=== PATIENT | male | born 1935 | race Caucasian/White ===

== ENCOUNTER 2018-01-08 18:25 | Emergency (ER) | payer MEDICARE, OTHER ==
[2018-01-08] MEDS ORDERED: DEXTROSE 5%-WATER 250 ML with VASOPRESSIN 100 UNIT IV PRN ×2 (18:50)
--- NOTE | 2018-01-08 18:51 | ER Document Report ---
ED General - General Chief Complaint: Cardiac Arrest Stated Complaint: POST ARREST Cannot obtain history due to: Intubated, Unstable vital signs Notes: Patient is an 82-year-old male with a past medical history of CHF and COPD who presents with EMS after being a witnessed cardiac arrest. Patient was found to be in ventricular tachycardia without a pulse. ACLS protocols were initiated and patient was subsequently transported to the emergency department. No other history can be obtained as the patient is intubated and unable to provide history. TRAVEL OUTSIDE OF THE [place] 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 EYES: Pupils are 1 mm, nonreactive. Glazed over ENT: nares patent, ET tube in place NECK: supple without lymphadenopathy LUNGS: Breath sounds clear to auscultation bilaterally and equal. No wheezes rales or rhonchi. HEART: Regular rate and rhythm without murmurs ABDOMEN: Distended abdomen. No rebound or guarding EXTREMITIES: No pitting or edema. NEUROLOGICAL: GCS 3 T PSYCH: Unable to assess SKIN: Pale, cool Course - Re-evaluation Re-evalutation: 01/08/18 18:47 Patient presents postarrest after being found to be in ventricular tachycardia without pulse. Patient was coded for a total of 30 minutes prior to arrival, the laceration prior to return of spontaneous circulation was PEA. Patient was reportedly in PEA for approximately 3-4 minutes. He did receive a total of 3 mg of epinephrine prior to arrival and was on an epinephrine infusion at 4 mcg/ min at time of arrival. On initial assessment a bedside echocardiogram shows a diffuse global dyskinesis of the heart but no evidence of pericardial effusion or tamponade. Breath sounds are clear bilaterally. Patient was a GCS of 3. No pupillary or corneal response. He did have some spontaneous ventilations. The epinephrine drip was immediately increased to 20 pg/min as patient's initial blood pressure was 48 systolic on palp. After approximately 10 minutes in the emergency department patient's blood pressure continued to deteriorate despite increasing the epinephrine infusion to 30 mcg/min. Patient did have loss of pulse. 2 rounds of ACLS protocol were followed including an additional 1 mg of epinephrine being administered. Patient did have return of spontaneous circulation with a paced rhythm. 3 g of calcium gluconate and an additional 50 mEQ of sodium bicarb was then administered. Will also initiate a vasopressin infusion. Patient is critically ill, very high risk for multiple re-arrests, and I anticipate that he may despite our efforts. 01/08/18 18:58 Patient is biting on his tube although continues to be with any spontaneous movements. Not following commands. Will paralyzed with vecuronium, begin ketamine infusion for sedation, nasal drip is being initiated as patient continues to be profoundly hypotensive despite epinephrine infusion being at 30 mcg/min. 01/08/18 20:37 Patient has been maxed out on epinephrine and vasopressin maintaining maps between 60 and 70. A central line has been placed in the right internal jugular vein without difficulty. Patient has been noted having intermittent runs of ventricular tachycardia. Amiodarone infusion has been started after an initial bolus of 150 mg. Patient continues to be critically ill, unstable, I am reassessing frequently. Laboratories show a markedly elevated white blood cell count of 144.9, extremely worrisome for a malignant process as part of the etiology of today's presentation. Troponin is mildly elevated particularly given that he did have an arrest. 01/08/18 21:03 Chest x-ray to confirm internal jugular vein position does not appear completely normal as the central line comes down what appears to be internal jugular and then crosses midline. I consulted with the radiologist who states that this could either be a subclavian branch or an anomalous vein or structure. However she cannot definitively rule out an arterial placement. Clinically, this does not appear to be consistent with arterial placement at all as during placement the needle was placed under ultrasound guidance, was visualized be going into the internal jugular vein, and bleeding was allowed after placement of the needle with a very slow, dark blood output. There is not back up into the ports. Infusions go through easily. There is also no bleeding around the site of the catheter placement to suggest dilation of an arterial vessel. Radiology has recommended a CT to verify but unfortunately the patient is so unstable that I do not believe it would be safe to transport him CT at this time. Will obtain of gas off of the line to further assess. 01/08/18 21:24 Patient's BP continues to be very poor. I have spent 20 minutes with the family updating them on the deterioration of the patient and my high level of concern that his white blood cell count with 10% band neutrophils he is suggestive of a malignant process either an acute leukemia or lymphoma. Alternative consideration would be a multiple myeloma. This is a very concerning manner presentation as patient did present in cardiac arrest and appears to have multisystem organ failure based on his labs showing both renal and hepatic failure. In regards to the central line placement: At this point I am quite certain that it is not in an artery as there is not even a slight hematoma to the area, there is no back up into the lines, guidelines continue to flush easily, and at this point it is entirely unsafe to confirm placement by a CT. Will continue to monitor closely and await the family's decision regarding ongoing care management although the patient would require transfer for consideration of induction chemotherapy. 01/08/18 22:29 Family is becoming more comfortable at this point with withdrawal of care and proceeding to comfort measures. Patient's labs continue to show multitudes of concerning findings including a lactate of almost 10, pH of 7, continued need for multiple vasopressors, no longer breathing over the ventilator. They would like to speak with the rig hand before proceeding with comfort measures 01/09/18 00:12 This is a delayed note. After multiple conversations with a multitude of family members they did come to the conclusion that withdrawal of care with comfort measures was most appropriate. After discussing with the and the son at the bedside they did confirm their desire to proceed with extubation, removal of vasopressor agents and IV analgesia. I went to the bedside with Sommer the nurse caring for this patient. We administered 2 mg of hydromorphone IV. The patient was then extubated. No spontaneous respirations were noted. All vasopressor agents were withheld stopped. monitor technician was shut off. Within 10 minutes of these measures being taken the patient did at 2336. - Vital Signs Vital signs: Temp Pulse Resp BP Pulse Ox 95.1 F L 13 87/33 L 100 01/08/18 23:20 01/08/18 23:20 01/08/18 23:21 01/08/18 22:26 - Laboratory Result Diagrams: 01/08/18 18:41 01/08/18 18:41 Laboratory results interpreted by me: 01/08/18 01/08/18 01/08/18 18:41 18:41 18:41 WBC 144.9 H* RBC 4.33 L Hgb 12.7 L MCV 98 H MCHC 30.0 L RDW 17.2 H Band Neutrophils % 10 H Monocytes % (Manual) 2 L Metamyelocytes % 8 H Myelocytes % 1 H Abs Neuts (Manual) 117.4 H Abs Lymphs (Manual) 24.6 H Abs Monocytes (Manual) 2.9 H VBG pH VBG HCO3 Sodium 136.2 L Carbon Dioxide 7 L* Anion Gap 22 H BUN 42 H Creatinine 2.88 H Est GFR ( Amer) 26 L Est GFR (Non-Af Amer) 21 L Glucose 154 H Lactic Acid Uric Acid Calcium 7.2 L Magnesium 2.4 H Direct Bilirubin 0.6 H AST 185 H ALT 102 H Total Protein 5.2 L Albumin 2.3 L 01/08/18 01/08/18 01/08/18 18:41 21:15 21:15 WBC RBC Hgb MCV MCHC RDW Band Neutrophils % Monocytes % (Manual) Metamyelocytes % Myelocytes % Abs Neuts (Manual) Abs Lymphs (Manual) Abs Monocytes (Manual) VBG pH 7.00 L* VBG HCO3 10.4 L Sodium Carbon Dioxide Anion Gap BUN Creatinine Est GFR ( Amer) Est GFR (Non-Af Amer) Glucose Lactic Acid 9.9 H Uric Acid 10.5 H Calcium Magnesium Direct Bilirubin AST ALT Total Protein Albumin - Diagnostic Test Radiology reviewed: Image reviewed, Reports reviewed Radiology results interpreted by me: 01/08/18 20:40 Chest x-ray: ET tube in appropriate position, no acute infiltrate pneumothorax - EKG Interpretation by Me Additional EKG results interpreted by me: 01/09/18 03:01 Atrially sensed ventricular paced rhythm, rate 78. Procedures - Central Line Right Internal jugular Consent obtained: No - Emergent Central line pre-insertion: Sterile PPE donned, Chloraprep applied, Sterile drapes applied Central line lumen type: Triple Ultrasound guided: Yes CM at insertion site: 20 Line secured with sutures: Yes Central line post-insertion: Blood return from lumens, Biopatch applied, Sutured , Sterile dressing applied Number of attempts: 1 Complications: No Notes: 01/09/18 02:52 Chest x-ray positioning uncertain although based on clinical evaluation arterial placement not a clinical concern Critical Care Note - Critical Care Note Total time excluding time spent on procedures (mins): 90 Comments: Critical care time spent obtaining history from patient or surrogate, discussions with consultants, development of treatment plan with patient or surrogate, evaluation of patient's response to treatment, examination of patient , ordering and performing treatments and interventions, ordering and review of laboratory studies, re-evaluation of patient's condition, ordering and review of radiographic studies and review of old charts Discharge - Discharge Clinical Impression: Cardiac arrest, Cardiogenic shock Leukocytosis Qualifiers: Leukocytosis type: unspecified Qualified Code(s): D72.829 - Elevated white blood cell count, unspecified Acute renal failure Qualifiers: Acute renal failure type: unspecified Qualified Code(s): N17.9 - Acute kidney failure, unspecified Hypothermia Qualifiers: Encounter type: initial encounter Qualified Code(s): T68.XXXA - Hypothermia, initial encounter Disposition:
[2018-01-08] MEDS ORDERED: KETAMINE HCL INJ 500 MG/10 ML VIAL IV ONE (18:57)
[2018-01-08] MEDS ORDERED: VECURONIUM BROMIDE INJ 10 MG VIAL IV ONE (18:57)
[2018-01-08] MEDS ORDERED: NORMAL SALINE 1000 ML 1,000 ML IV ONE ×2 (18:57→20:39)
[2018-01-08 19:19] LABS: HEMATOCRIT 42.4 % (37.9-51.0); HEMOGLOBIN 12.7 g/dL (13.5-17.0); MEAN CORPUSCULAR HEMOGLOBIN 29.4 pg (27.0-33.4); MEAN CORPUSCULAR VOLUME 98 fl (80-97); PLATELET COUNT 167 10^3/uL (150-450); RED BLOOD COUNT 4.33 10^6/uL (4.35-5.55); RED CELL DISTRIBUTION WIDTH 17.2 % (11.5-14.0)
[2018-01-08] MEDS ORDERED: EPINEPHRINE INJ/PF 1 MG/1 ML AMPULE ONE ×5 (19:22→22:13)
--- NOTE | 2018-01-08 19:26 | RADIOLOGY REPORT (SQ) ---
EXAM DESCRIPTION: CHEST SINGLE VIEW COMPLETED DATE/TIME: 01/08/2018 7:18 pm REASON FOR STUDY: post arrest COMPARISON: 06/25/2012 EXAM PARAMETERS: NUMBER OF VIEWS: One view. TECHNIQUE: Single frontal radiographic view of the chest acquired. RADIATION DOSE: NA LIMITATIONS: None. FINDINGS: LUNGS AND PLEURA: No opacities, masses or pneumothorax. No pleural effusion. MEDIASTINUM AND HILAR STRUCTURES: No masses. Contour normal. HEART AND VASCULAR STRUCTURES: Heart normal in size. Normal vasculature. BONES: No acute findings. HARDWARE: None in the chest. OTHER: No other significant finding. IMPRESSION: ETT in expected location. No acute pulmonary disease. TECHNICAL DOCUMENTATION: JOB ID: [id number] [employer]- All Rights Reserved
[2018-01-08] MEDS ORDERED: VASOPRESSIN INJ 20 UNIT/1 ML VIAL ONE (19:35)
[2018-01-08 19:37] LABS: CREATINE KINASE MB 1.91 ng/mL (<4.55)
[2018-01-08 19:53] LABS: TROPONIN I 0.058 ng/mL
[2018-01-08 20:03] LABS: ABSOLUTE LYMPHOCYTES# (MANUAL) 24.6 10^3/uL (0.5-4.7); ABSOLUTE MONOCYTES # (MANUAL) 2.9 10^3/uL (0.1-1.4); ABSOLUTE NEUTROPHILS# (MANUAL) 117.4 10^3/uL (1.7-8.2); BAND NEUTROPHILS % (MANUAL) 10 % (3-5); BASOPHILS % (MANUAL) 0 % (0-2); EOSINOPHILS % (MANUAL) 0 % (0-6); LYMPHOCYTES % (MANUAL) 17 % (13-45); MONOCYTES % (MANUAL) 2 % (3-13); SEGMENTED NEUTROPHILS % (MAN) 62 % (42-78); TOTAL CELLS COUNTED 100
[2018-01-08 20:08] LABS: ANISOCYTOSIS SLIGHT; POIKILOCYTOSIS 1+; TOXIC GRANULATION 1+
[2018-01-08 20:09] LABS: ACANTHOCYTES 2+; BURR CELLS 2+; PLATELET COMMENT ADEQUATE; PLATELET GIANT PRESENT; PLATELET LARGE PRESENT; SCHISTOCYTES 1+; TEAR DROP CELLS 2+
[2018-01-08 20:37] LABS: METAMYELOCYTES % (MANUAL) 8 % (0)
[2018-01-08] MEDS ORDERED: AMIODARONE HCL 150 MG in DEXTROSE 5%-WATER 100 ML IV ONE (20:37)
[2018-01-08] MEDS ORDERED: DEXTROSE 5%-WATER 500 ML with AMIODARONE HCL 900 MG IV PRN ×2 (20:37)
[2018-01-08] MEDS ORDERED: AMIODARONE HCL INJ 150 MG/3 ML VIAL IV ONE ×2 (20:37→20:55)
[2018-01-08 20:38] LABS: MYELOCYTES % (MANUAL) 1 % (0)
[2018-01-08 20:39] LABS: WHITE BLOOD COUNT 144.9 10^3/uL (4.0-10.5)
[2018-01-08] MEDS ORDERED: PIPERACILLIN/TAZOBACTAM 3.375 GM VIAL IV ONE (20:39)
[2018-01-08] MEDS ORDERED: VANCOMYCIN HCL INJ 1000 MG VIAL IV ONE (20:39)
[2018-01-08 20:54] LABS: ALANINE AMINOTRANSFERASE 102 U/L (21-72); ALBUMIN 2.3 g/dL (3.5-5.0); ALKALINE PHOSPHATASE 111 U/L (38-126); ASPARTATE AMINO TRANSFERASE 185 U/L (17-59); BILIRUBIN,DIRECT 0.6 mg/dL (0.0-0.4); BLOOD UREA NITROGEN 42 mg/dL (7-20); CALCIUM 7.2 mg/dL (8.4-10.2); CHLORIDE 107 mmol/L (98-107); GLUCOSE 154 mg/dL (75-110); POTASSIUM 4.4 mmol/L (3.6-5.0); SODIUM 136.2 mmol/L (137-145); TOTAL PROTEIN 5.2 g/dL (6.3-8.2)
--- NOTE | 2018-01-08 21:01 | RADIOLOGY REPORT (SQ) ---
EXAM DESCRIPTION: CHEST SINGLE VIEW COMPLETED DATE/TIME: 01/08/2018 8:50 pm REASON FOR STUDY: post-central line placement COMPARISON: 01/08/2018 1856 hours EXAM PARAMETERS: NUMBER OF VIEWS: One view TECHNIQUE: Single frontal radiograph of the chest. RADIATION DOSE: N/A LIMITATIONS: None. FINDINGS: TEMPORARY SUPPORT DEVICES:ETT in expected location. NG tube courses below the melani-diaphr agm in to the stomach. Central venous access catheter tip via right IJ approach. Of the catheter crosstie inspector sses midline. The possibly in the left subclavian vein, although arterial position is also possible. LUNGS AND PLEURA: No opacities. No effusions. No masses. No pneumothorax. MEDIASTINUM AND HILAR STRUCTURES: No masses. Contour normal. HEART AND VASCULAR STRUCTURES: Heart normal in size. normal vascularity. Aorta normal for age. BONES: No acute findings. OTHER: No other significant finding. IMPRESSION: NO ACUTE RADIOGRAPHIC FINDING IN THE CHEST. Venous access catheter tip is across the midline from a right IJ approach. Possibly in the left subc lavian vein, but also possibly intra-arterial. Remaining support devices in expected locations. TECHNICAL DOCUMENTATION: JOB ID: [id number] [employer]- All Rights Reserved
[2018-01-08 21:04] LABS: ANION GAP 22 (5-19)
[2018-01-08 21:05] LABS: CARBON DIOXIDE 7 mmol/L (22-30)
[2018-01-08 21:30] LABS: VENOUS BLOOD BASE EXCESS -20.5 mmol/L; VENOUS BLOOD HCO3 10.4 mmol/L (20-32); VENOUS BLOOD PCO2 43.6 mmHg (35-63)
[2018-01-08 21:56] LABS: URIC ACID 10.5 mg/dL (3.5-8.5)
--- NOTE | 2018-01-08 22:47 | EKG REPORT ---
SEVERITY:- ABNORMAL ECG - ATRIAL-SENSED VENTRICULAR-PACED RHYTHM : Confirmed by: Matilda Medeiros 08-Jan-2018 22:46:20
[2018-01-08] MEDS ORDERED: HYDROMORPHONE HCL INJ/PF 2 MG/ML AMPULE ONE (23:17)
[2018-01-09 00:52] VITALS: BP 87/33
[2018-01-09] MEDS ORDERED: HYDROMORPHONE HCL INJ/PF 2 MG/ML AMPULE IV ONE (00:58)
== END 2018-01-08 23:36 | disposition expired ==
LOC: ER 18:25
DX: I46.9 Cardiac arrest, cause unspecified (principal); I10 Essential (primary) hypertension; N17.9 Acute kidney failure, unspecified; K72.90 Hepatic failure, unspecified without coma; D72.829 Elevated white blood cell count, unspecified; T68.XXXA Hypothermia, initial encounter; X58.XXXA Exposure to other specified factors, initial encounter; J44.9 Chronic obstructive pulmonary disease, unspecified; R14.0 Abdominal distension (gaseous)
CPT/HCPCS: 36556; 93005; 99291; 99292; 92950; 96361; 96375; 96365; 96366; 36415; 87040; 82553; 82550; 83735; 84550; 85025; 87077; 80053; 84484; 87186; 82803; 83605; 71045; 93010; J3490 ×3; J1170; J7060 ×2; J7030; J0282